=== PATIENT | male | born 1980 | race Caucasian/White ===

== ENCOUNTER 2019-03-29 00:32 | Emergency (ER) | payer SELFPAY ==
[~2019-03-29] VITALS: Ht 182.9 cm; Wt 97.5 kg
--- NOTE | 2019-03-29 00:32 | NUR ---
0032 - Patient to ER bed 4 to gown for evaluation. Side rails up. SANDY Ybarra at bedside getting report.
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
--- NOTE | 2019-03-29 00:35 | NUR ---
0035 - ER at bedside examining patient.
[2019-03-29 00:36] VITALS: BP_SYST 124
--- NOTE | 2019-03-29 00:47 | NUR ---
Patient self extracted 20g IV from left hand which was placed to hand. Gauze applied bleeding controlled.
[2019-03-29] MEDS: NACL 0.9% 2,000 ML IV ONE (01:18)
[2019-03-29] MEDS: ONDANSETRON HCL 4 MG/2 ML VIAL IVP ONE (01:18)
[2019-03-29 01:20] LABS: BASOPHILS # (AUTO) 0.1 K/uL (0.0-0.2); BASOPHILS % (AUTO) 0.7 % (0.0-2.0); EOSINOPHILS # (AUTO) 0.5 K/uL (0.0-0.4); EOSINOPHILS % (AUTO) 4.8 % (0.0-4.0); HEMOGLOBIN 14.7 g/dL (14.0-18.0); LYMPHOCYTES # (AUTO) 3.7 K/uL (1.0-5.5); LYMPHOCYTES % (AUTO) 34.3 % (20.5-51.5); MEAN CORPUSCULAR HEMOGLOBIN 31 pg (27-31); MEAN CORPUSCULAR HGB CONC 34 % (32-36); MEAN CORPUSCULAR VOLUME 92 fL (79.0-98.0); MONOCYTES # (AUTO) 0.7 K/uL (0.0-1.0); MONOCYTES % (AUTO) 6.7 % (1.7-9.3); NEUTROPHILS # (AUTO) 5.8 K/uL (1.8-7.7); NEUTROPHILS % (AUTO) 53.5 % (40.0-70.0); PLATELET COUNT (AUTO) 320 K/uL (130-430); RED BLOOD CELL COUNT(AUTO) 4.68 MIL/uL (4.2-6.2); RED CELL DISTRIBUTION WIDTH 12.7 % (9.0-15.0); WHITE BLOOD COUNT (AUTO) 10.9 K/uL (4.8-10.8)
--- NOTE | 2019-03-29 01:20 | NUR ---
#18 gauge angiocath placed to left forearm. Use of asceptic technique. Opsite placed over site. Blood return noted. Flushed with 10 cc of normal saline. No evidence of infiltration noted. Patient tolerated well.
[2019-03-29 01:29] LABS: CALCIUM 9.3 mg/dL (8.4-11.0); CREATININE 0.98 mg/dL (0.55-1.30); POTASSIUM 3.7 mmol/L (3.5-5.1)
--- NOTE | 2019-03-29 01:40 | NUR ---
Patient sleeping unresponsive to verbal stimuli. Requires repeated painful stimuli to arrouse.
[2019-03-29 01:43] LABS: ALBUMIN 3.9 g/dL (3.4-4.8); TOTAL BILIRUBIN 0.2 mg/dL (0.0-1.0)
[2019-03-29 02:16] LABS: BILIRUBIN,URINE NEGATIVE (NEGATIVE); BLOOD, URINE NEGATIVE (NEGATIVE); CLARITY/URINE CLEAR (CLEAR); COLOR,URINE YELLOW (YELLOW); GLUCOSE,URINE NEGATIVE (NEGATIVE); KETONES,URINE NEGATIVE (NEGATIVE); LEUKOCYTE ESTERASE ,URINE NEGATIVE (NEGATIVE); NITRITE, URINE NEGATIVE (NEGATIVE); PH,URINE 6.5 (5.0-8.0); PROTEIN URINE NEGATIVE (NEGATIVE); UROBILINOGEN,URINE 0.2 (0.2-1.0)
[2019-03-29 02:23] LABS: BARBITURATE, URINE NEGATIVE (NEG <=200); BENZODIAZEPINE, URINE NEGATIVE (NEG <=150); CANNABINOID, URINE POSITIVE (NEG <=50); COCAINE, URINE NEGATIVE (NEG <=150); METHAMPHETAMINES SCREEN,URINE NEGATIVE (NEG <=500); OPIATE, URINE NEGATIVE (NEG <=100); PHENCYCLIDINE SCREEN,URINE NEGATIVE (NEG <=25); UR TRICYCLIC ANTIDEPRESSANTS NEGATIVE (NEG <=300); URINE AMPHETAMINE NEGATIVE (NEG <=500); URINE METHADONE NEGATIVE (NEG <=200); URINE OXYCODONE SCREEN NEGATIVE (NEG <=100); URINE PROPOXYPHENE SCREEN NEGATIVE (NEG <=300)
--- NOTE | 2019-03-29 02:25 | NUR ---
Verbal consent obtained from patient for blood alcohol, name and verified by patient search warrant provided by Officer tani #[id number]. Disinfected patient's skin with that did not contain alcohol or other volatile organic compound. Collected the blood from the subject named by venipuncture, in the presence of Officer tani #[id number]. Used a sterile, dry hypodermic needle and dry vacuum blood collection. Two dry vacuum blood collection was supplied by the officer named above. Withdrew a specimen of blood from left forearm of the subject named above. Inverted both blood tube several times to ensure that the preservative and anticoagulant were thoroughly mixed in the blood specimen. I initialed both blood tube label for identification. The labeled blood tubes was handed directly to the Officer named above. The blood tubes stopper remained in place while I had possession of the blood tubes. The Officer placed tubes into envelope and sealed it in my presence. Envelope initialed by myself and Officer named above. Patient tolerated well, bandage applied, and bleeding controlled.
--- NOTE | 2019-03-29 02:42 | NUR ---
Note richard in ED - 03/29/19 at 0705 by [email or web address] Verbal consent obtained from patient for blood alcohol, name and verified by patient. Search warrant provided by office badge #[id number]. Disinfected patient's skin with that did not contain alcohol or other volatile organic compound. Collected the blood from the subject named by venipuncture, in the presence of Officer badge #[id number]. Used a sterile, dry hypodermic needle and dry vacuum blood collection. Two dry vacuum blood collection was supplied by the officer named above. Withdrew a specimen of blood from left forearm of the subject named above. Inverted both blood tube several times to ensure that the preservative and anticoagulant were thoroughly mixed in the blood specimen. I initialed both blood tube label for identification. The labeled blood tubes was handed directly to the Officer named above. The blood tubes stopper remained in place while I had possession of the blood tubes. The Officer placed tubes into envelope and sealed it in my presence. Envelope initialed by myself and Officer named above. Patient tolerated well, bandage applied, and bleeding controlled.
--- NOTE | 2019-03-29 03:37 | NUR ---
Patient sleeping. Respirations even and unlabored. Mild snoring noted. Remains on continuous pulse oximetry.
--- NOTE | 2019-03-29 05:59 | NUR ---
Patient remains sleeping. Audible snoring respirations with equal chest rise and fall. Patient remains on continuous pulse oximetry. Arousable to repeated verbal and painful stimuli however is obtuned at rest.
[2019-03-29 06:56] VITALS: BP_SYST 139
--- NOTE | 2019-03-29 06:56 | NUR ---
Brian eloped from ED. Ambulates with steady gait. Unwilling to sign AMA form. IV and ID band removed prior to discharge.
== END 2019-03-29 06:56 | disposition left against medical advice (07) ==
LOC: SED 00:32
DX: F10.129 Alcohol abuse with intoxication, unspecified (principal); F12.90 Cannabis use, unspecified, uncomplicated
CPT/HCPCS: 36415; 80053; 80307; 81003; 85025; 96374; 99283; G0482; J2405; J7030

== ENCOUNTER 2022-11-29 02:11 | Emergency (ER) | payer SELFPAY ==
[~2022-11-29] VITALS: Ht 185.4 cm; Wt 106.6 kg
[2022-11-29 02:11] VITALS: BP_SYST 143
[2022-11-29] MEDS: NALOXONE HCL 2 MG/2 ML SYR IVP ONE (03:44)
[2022-11-29] MEDS: ONDANSETRON HCL 4 MG/2 ML VIAL IVP ONE (03:44)
[2022-11-29 05:05] LABS: BASOPHILS % (AUTO) 0.2 % (0.0-2.0); EOSINOPHILS # (AUTO) 0.2 K/uL (0.0-0.4); EOSINOPHILS % (AUTO) 0.9 % (0.0-4.0); HEMATOCRIT 46.8 % (36-54); HEMOGLOBIN 15.6 g/dL (14.0-18.0); LYMPHOCYTES # (AUTO) 1.5 K/uL (1.0-5.5); LYMPHOCYTES % (AUTO) 7.2 % (20.5-51.5); MEAN CORPUSCULAR HEMOGLOBIN 30 pg (27-31); MEAN CORPUSCULAR HGB CONC 33 % (32-36); MEAN CORPUSCULAR VOLUME 90 fL (79.0-98.0); MONOCYTES # (AUTO) 1.5 K/uL (0.0-1.0); MONOCYTES % (AUTO) 7.1 % (1.7-9.3); NEUTROPHILS # (AUTO) 17.9 K/uL (1.8-7.7); NEUTROPHILS % (AUTO) 84.6 % (40.0-70.0); PLATELET COUNT (AUTO) 311 K/uL (130-430); RED BLOOD CELL COUNT(AUTO) 5.19 MIL/uL (4.2-6.2); RED CELL DISTRIBUTION WIDTH 13.3 % (9.0-15.0); WHITE BLOOD COUNT (AUTO) 21.1 K/uL (4.8-10.8)
[2022-11-29 05:17] LABS: ANION GAP 9 (5-15); CALCIUM 9.1 mg/dL (8.4-11.0); CHLORIDE 102 mmol/L (98-107); CREATININE 1.22 mg/dL (0.55-1.30); GLUCOSE 106 mg/dL (70-99); UREA NITROGEN, BLOOD 21 mg/dL (8-21)
[2022-11-29 05:28] LABS: ALANINE AMINOTRANSFERASE 67 U/L (12-78); ALBUMIN 3.9 g/dL (3.4-4.8); ASPARTATE AMINOTRANSFERASE 42 U/L (10-37); TOTAL BILIRUBIN 0.5 mg/dL (0.0-1.0)
[2022-11-29] MEDS ORDERED: cefTRIAXone 2 GM VIAL IM ONE (05:30)
[2022-11-29 05:31] LABS: GFR AFRICAN AMERICAN 85 mL/min (>90)
[2022-11-29 05:32] LABS: ACETAMINOPHEN < 1 ug/mL (1-30); ALCOHOL, BLOOD < 3 mg/dL (<10)
[2022-11-29 06:00] VITALS: BP_SYST 131
[2022-11-29] MEDS ORDERED: cefTRIAXone 2 GM VIAL ONE (06:20)
[2022-11-29] MEDS ORDERED: NACL 0.9% 1,000 ML IV ONE (07:30)
[2022-11-29] MEDS ORDERED: D5/0.45 NS 1,000 ML IV SCH (07:45)
[2022-11-29] MEDS ORDERED: AZITHROMYCIN 500 MG in NS 250 ML IV SCH (09:00)
[2022-11-30] MEDS ORDERED: cefTRIAXone 1 GM IVPB PREMIX 50 ML IV SCH (06:00)
== END 2022-11-29 10:00 | disposition admitted as inpatient to this hospital (09) ==
LOC: SED 02:11 → UNDOADMIN 07:32 → STU 07:32
DX: T40.411A Poisoning by fentanyl or fentanyl analogs, accidental (unintentional), initial encounter (principal); R41.82 Altered mental status, unspecified; J18.9 Pneumonia, unspecified organism; D72.829 Elevated white blood cell count, unspecified; Z20.822 Contact with and (suspected) exposure to COVID-19; Y92.89 Other specified places as the place of occurrence of the external cause
CPT/HCPCS: 99291; 96365; 70450; 96375; 87426; 80053; 85025; 87040; 36415; 71045; 76376; 83605; G0482; J0696; J2310; J2405; G0480; G0481; G0378; J0456; J7050